=== PATIENT | female | born 1990 | race Two or more races ===

== ENCOUNTER 2017-08-07 02:47 | Emergency (ER) | payer SELFPAY ==
[~2017-08-07] VITALS: Ht 157.5 cm; Wt 46.0 kg
[2017-08-07] MEDS ORDERED: FAMOTIDINE 20MG/2ML VIAL IV STA (03:33)
[2017-08-07] MEDS ORDERED: ONDANSETRON HCL 4MG/2ML VIAL IV STA (03:33)
[2017-08-07] MEDS ORDERED: SODIUM CHLORIDE 0.9% 1,000 ML IV ONE (03:33)
[2017-08-07] MEDS ORDERED: KETOROLAC 30MG/ML VIAL IV STA (03:33)
[2017-08-07 03:54] LABS: BASOPHILS % 0.5 % (0.0-2.0); EOSINOPHILS % 0.5 % (0.0-5.0); HEMATOCRIT. 36.2 % (36.0-48.0); HEMOGLOBIN. 12.1 g/dL (12.0-16.0); LYMPHOCYTES % 15.2 % (20.0-50.0); MEAN CORPUSCULAR HEMOGLOBIN 31.3 pg (28.0-32.0); MEAN CORPUSCULAR VOLUME 93.4 fL (81.0-99.0); MEAN PLATELET VOLUME 9.4 fl (7.4-10.4); MONOCYTES % 3.8 % (2.0-8.0); PLATELET 228 x1000/uL (130-400); RED BLOOD CELL COUNT 3.87 mill/uL (4.2-5.4); RED CELL DISTRIBUTION WIDTH 12.8 % (11.6-14.6)
[2017-08-07 04:01] LABS: CLARITY URINE CLEAR (CLEAR); COLOR URINE YELLOW (YELLOW); KETONES URINE TRACE (NEGATIVE); LEUKOCYTE ESTERASE URINE NEGATIVE (NEGATIVE); NITRITE URINE NEGATIVE (NEGATIVE); OCCULT BLOOD URINE NEGATIVE (NEGATIVE); PROTEIN URINE NEGATIVE (NEGATIVE); SPECIFIC GRAVITY URINE 1.041 (1.005-1.030); UROBILINOGEN URINE 0.2 E.U./dL (0.2-1.0)
[2017-08-07 04:01] LABS: INR 1.1
[2017-08-07 04:02] LABS: CHLORIDE 105 mEq/L (98-107)
[2017-08-07 04:12] LABS: HCG SCREEN NEGATIVE
[2017-08-07] MEDS ORDERED: ACETAMINOPHEN 325MG TABLET PO ONE (05:30)
[2017-08-07] MEDS ORDERED: FAMOTIDINE 20MG TABLET PO ONE (05:45)
[2017-08-07 06:15] VITALS: BP 98/60
== END 2017-08-07 06:27 | disposition home or self-care (01) ==
LOC: ER 02:47
DX: R10.30 Lower abdominal pain, unspecified (principal); R11.2 Nausea with vomiting, unspecified; R19.7 Diarrhea, unspecified
CPT/HCPCS: 36415; 80053; 81003; 83690; 84703; 85025; 85610; 96361; 96374; 96375; 99285; J1885; J2405; J3490; J7030